=== PATIENT | female | born 1950 | race Caucasian/White ===

== ENCOUNTER 2022-12-17 12:12 | Observation (INO) | payer MEDICARE ==
[2022-12-17] MEDS ORDERED: SODIUM CHLORIDE 0.9% 1,000 ML IV ONE (14:29)
--- NOTE | 2022-12-17 15:01 | ED ---
Nausea/Vomiting/Diarrhea HPI - General Chief complaint: Abdominal Pain Stated complaint: Rerferal- vomiting, migrains Time Seen by Provider: 12/17/22 14:12 Source: patient, RN notes reviewed Mode of arrival: wheelchair Limitations: no limitations - History of Present Illness Initial comments: This is a 72-year-old female who presents to the emergency department for multiple complaints. States over the last 3 weeks, she's been dealing with extreme exhaustion. She's also had intermittent episodes of nausea and vomiting, but denies any abdominal pain. Also states that she's been dealing with headaches on and off over the last week. She took ibuprofen today with no relief in symptoms. Denies any notable history of headaches, and states that she's also been experiencing visual changes. States that she has autoimmune hepatitis, but denies any history of ascites. Currently follows with Dr. Gilman, a liver specialist at [facility]. States that he instructed her to come here to the emergency department for further evaluation. She is due to have an EGD soon for evaluation of her liver. Also states that she has not taken her thyroid medication in 3 months, because she forgot. Denies any fevers, chills, sore throat, cough, dyspnea, chest pain, palpitations, abdominal pain, diarrhea, or back pain. MD complaint: nausea, vomiting - Related Data Home Medications Medication Instructions Recorded Confirmed Levothyroxine Sodium [Synthroid] 112 mcg PO DAILY 12/17/22 12/17/22 Meclizine [Antivert] 25 mg PO Q8H PRN 12/17/22 12/17/22 Olmesartan/Hydrochlorothiazide 1 tab PO DAILY 12/17/22 12/17/22 [Benicar Hct 40-12.5 mg Tablet] Omeprazole 40 mg PO DAILY 12/17/22 12/17/22 amLODIPine [Norvasc] 5 mg PO DAILY 12/17/22 12/17/22 Allergies Allergy/AdvReac Type Severity Reaction Status Date / Time codeine AdvReac Vomiting Verified 12/17/22 19:39 morphine AdvReac Vomiting Verified 12/17/22 19:39 Review of Systems ROS Statement: Those systems with pertinent positive or pertinent negative responses have been documented in the HPI. ROS Other: All systems not noted in ROS Statement are negative. Past Medical History Past Medical History: Hypertension, Liver Disease History of Any Multi-Drug Resistant Organisms: None Reported Past Surgical History: Appendectomy, Cholecystectomy Smoking Status: Never smoker Past Alcohol Use History: None Reported Past Drug Use History: None Reported General Exam Limitations: no limitations General appearance: alert, in no apparent distress Head exam: Present: atraumatic, normocephalic, normal inspection Respiratory exam: Present: normal lung sounds bilaterally. Absent: respiratory distress, wheezes, rales, rhonchi, stridor Cardiovascular Exam: Present: regular rate, normal rhythm, normal heart sounds. Absent: systolic murmur, diastolic murmur, rubs, gallop, clicks GI/Abdominal exam: Present: soft, normal bowel sounds. Absent: distended, tenderness, guarding, rebound, rigid Neurological exam: Present: alert, oriented X3, CN II-XII intact Psychiatric exam: Present: normal affect, normal mood Skin exam: Present: warm, dry, intact, normal color. Absent: rash Course Vital Signs 12/17/22 12/17/22 12:28 14:19 Temperature 97.7 F Pulse Rate 56 L 65 Respiratory 16 18 Rate Blood Pressure 104/68 138/80 O2 Sat by Pulse 98 99 Oximetry Medical Decision Making - Medical Decision Making This is a 72-year-old female who presents to the emergency department for nausea, vomiting, and headaches. Was pt. sent in by a medical professional or institution? @ -No Did you speak to anyone other than the patient for history? @ -No Did you review nursing and triage notes? @ -Yes, and I agree, it is accurate with regards to the patient's symptoms. Were old charts reviewed? @ -No Differential Diagnosis? @ -Differential Nausea and Vomiting: Gastroenteritis, cholecystitis, appendicitis, pancreatitis, migraine, benign positional vertigo, food borne illness, pyelonephritis, irritable bowel syndrome, influenza, Covid, GERD, incarcerated hernia, intestinal obstruction, this is not meant to be an all-inclusive list. -Differential Headache: Migraine, tension, cluster, carbon monoxide, central venous thrombosis, pension karma temporal arteritis, acute closure glaucoma, intercranial hemorrhage, mastoiditis, sinusitis, head injury, this is not meant to be an all-inclusive list. EKG interpreted by me (3pts min.)? @ -EKG interpreted by me demonstrating the following: Sinus bradycardia. Ventricular rate 56 beats per minute, MN interval 190 ms, QRS duration 104 ms, QTc 326 ms. X-rays interpreted by me (1pt min.)? @ -Not obtained CT interpreted by me (1pt min.)? @ -Computed tomography scan of the brain obtained. My interpretation identifies no evidence of an acute intracranial hemorrhage or acute ischemic changes. U/S interpreted by me (1pt. min.)? @ -Not obtained What testing was considered but not performed? (CT, X-rays, U/S, labs)? Why? @ -None What meds were considered but not given? Why? @ -None Did you discuss the management of the patient with other professionals? @ -Yes, Dr. Winter, who accepts the patient for admission. Did you reconcile home meds? @ -No Was smoking cessation discussed for >3mins.? @ -No Was critical care preformed (if so, how long)? @ -No Were there social determinants of health that impacted care today? How? (Homelessness, low income, unemployed, alcoholism, drug addiction, transportation, low edu. Level, literacy, decrease access to med. care, assisted, rehab)? @ -No Was there de-escalation of care discussed even if they declined? (Discuss DNR or withdrawal of care, Hospice)? @ -No What co-morbidities impacted this encounter? (DM, HTN, Smoking, COPD, CAD, Cancer, CVA, Hep., AIDS, mental health diagnosis, sleep apnea, morbid obesity)? @ -Autoimmune hepatitis Was patient admitted / discharged? @ -Admitted. Lab work obtained revealing elevated liver enzymes and a mildly elevated ammonia. However, patient does have a history of autoimmune hepatitis and we do not have any prior values for comparison. The ED law secretary called [facility] and tried to get the results of the patient's most recent blood work for comparison. However, they were only able to access her PT/INR. PT was 13.2 and INR 1.18 on 11/12/22. Additionally, TSH is elevated at 93.5. Free T4 within normal limits. As noted in the HPI, patient has not been taking her levothyroxine for 3 months. Computed tomography scan of the brain obtained revealing no acute process. We did also obtain an ultrasound of the abdomen, however visualization was very limited due to overlying bowels. Patient continues to explain of extreme exhaustion with nausea/vomiting and headaches. In light of her ongoing symptoms, patient admitted to medicine for further management. Blood cultures were obtained and the patient was given IV levothyroxine. GI consulted for evaluation of elevated liver enzymes and elevated ammonia levels. Undiagnosed new problem with uncertain prognosis? @ -None Drug Therapy requiring intensive monitoring for toxicity (Heparin, Nitro, Insulin, Cardizem)? @ -None Were any procedures done? @ -None Diagnosis/symptom? @ -Fatigue, N/V, elevated ammonia Acute, or Chronic, or Acute on Chronic? @ -Acute Uncomplicated (without systemic symptoms) or Complicated (systemic symptoms)? @ -Complicated Side effects of treatment? @ -None Exacerbation, Progression, or Severe Exacerbation] @ -Not applicable Poses a threat to life or bodily function? @ -Yes This case was discussed in detail with the attending ED physician, Dr. Tatum. Presentation, findings, and treatment plan discussed in detail as well. - Lab Data Result diagrams: 12/17/22 14:49 12/17/22 14:49 Lab Results 12/17/22 12/17/22 12/17/22 Range/Units 14:49 14:49 14:49 WBC 6.4 (3.8-10.6) k/uL RBC 4.40 (3.80-5.40) m/uL Hgb 14.3 (11.4-16.0) gm/dL Hct 43.6 (34.0-46.0) % MCV 99.1 (80.0-100.0) fL MCH 32.4 (25.0-35.0) pg MCHC 32.7 (31.0-37.0) g/dL RDW 15.6 H (11.5-15.5) % Plt Count 167 (150-450) k/uL MPV 8.9 Neutrophils % 55 % Lymphocytes % 36 % Monocytes % 6 % Eosinophils % 1 % Basophils % 0 % Neutrophils # 3.5 (1.3-7.7) k/uL Lymphocytes # 2.3 (1.0-4.8) k/uL Monocytes # 0.4 (0-1.0) k/uL Eosinophils # 0.1 (0-0.7) k/uL Basophils # 0.0 (0-0.2) k/uL Macrocytosis Slight PT 13.1 H (9.0-12.0) sec INR 1.3 H (<1.2) APTT 29.8 (22.0-30.0) sec Sodium 136 L (137-145) mmol/L Potassium 3.7 (3.5-5.1) mmol/L Chloride 106 (98-107) mmol/L Carbon Dioxide 21 L (22-30) mmol/L Anion Gap 9 mmol/L BUN 16 (7-17) mg/dL Creatinine 0.84 (0.52-1.04) mg/dL Est GFR (CKD-EPI)AfAm 80 (>60 ml/min/1.73 sqM) Est GFR (CKD-EPI)NonAf 69 (>60 ml/min/1.73 sqM) Glucose 105 H (74-99) mg/dL Calcium 8.8 (8.4-10.2) mg/dL Total Bilirubin 2.1 H (0.2-1.3) mg/dL AST 73 H (14-36) U/L ALT 63 H (4-34) U/L Alkaline Phosphatase 217 H (38-126) U/L Ammonia (<30) umol/L Troponin I (0.000-0.034) ng/mL Total Protein 10.1 H (6.3-8.2) g/dL Albumin 3.4 L (3.5-5.0) g/dL Amylase 72 (30-110) U/L Lipase 136 (23-300) U/L TSH 93.500 H (0.465-4.680) mIU/L Free T4 0.86 (0.78-2.19) ng/dL Urine Color Urine Appearance (Clear) Urine pH (5.0-8.0) Ur Specific [place] (1.001-1.035) Urine Protein (Negative) Urine Glucose (UA) (Negative) Urine Ketones (Negative) Urine Blood (Negative) Urine Nitrite (Negative) Urine Bilirubin (Negative) Urine Urobilinogen (<2.0) mg/dL Ur Leukocyte Esterase (Negative) Heterophile Antibody (Negative) 12/17/22 12/17/22 12/17/22 Range/Units 14:49 14:49 15:17 WBC (3.8-10.6) k/uL RBC (3.80-5.40) m/uL Hgb (11.4-16.0) gm/dL Hct (34.0-46.0) % MCV (80.0-100.0) fL MCH (25.0-35.0) pg MCHC (31.0-37.0) g/dL RDW (11.5-15.5) % Plt Count (150-450) k/uL MPV Neutrophils % % Lymphocytes % % Monocytes % % Eosinophils % % Basophils % % Neutrophils # (1.3-7.7) k/uL Lymphocytes # (1.0-4.8) k/uL Monocytes # (0-1.0) k/uL Eosinophils # (0-0.7) k/uL Basophils # (0-0.2) k/uL Macrocytosis PT (9.0-12.0) sec INR (<1.2) APTT (22.0-30.0) sec Sodium (137-145) mmol/L Potassium (3.5-5.1) mmol/L Chloride (98-107) mmol/L Carbon Dioxide (22-30) mmol/L Anion Gap mmol/L BUN (7-17) mg/dL Creatinine (0.52-1.04) mg/dL Est GFR (CKD-EPI)AfAm (>60 ml/min/1.73 sqM) Est GFR (CKD-EPI)NonAf (>60 ml/min/1.73 sqM) Glucose (74-99) mg/dL Calcium (8.4-10.2) mg/dL Total Bilirubin (0.2-1.3) mg/dL AST (14-36) U/L ALT (4-34) U/L Alkaline Phosphatase (38-126) U/L Ammonia 54 H (<30) umol/L Troponin I <0.012 (0.000-0.034) ng/mL Total Protein (6.3-8.2) g/dL Albumin (3.5-5.0) g/dL Amylase (30-110) U/L Lipase (23-300) U/L TSH (0.465-4.680) mIU/L Free T4 (0.78-2.19) ng/dL Urine Color Urine Appearance (Clear) Urine pH (5.0-8.0) Ur Specific [place] (1.001-1.035) Urine Protein (Negative) Urine Glucose (UA) (Negative) Urine Ketones (Negative) Urine Blood (Negative) Urine Nitrite (Negative) Urine Bilirubin (Negative) Urine Urobilinogen (<2.0) mg/dL Ur Leukocyte Esterase (Negative) Heterophile Antibody Negative (Negative) 12/17/22 Range/Units 15:17 WBC (3.8-10.6) k/uL RBC (3.80-5.40) m/uL Hgb (11.4-16.0) gm/dL Hct (34.0-46.0) % MCV (80.0-100.0) fL MCH (25.0-35.0) pg MCHC (31.0-37.0) g/dL RDW (11.5-15.5) % Plt Count (150-450) k/uL MPV Neutrophils % % Lymphocytes % % Monocytes % % Eosinophils % % Basophils % % Neutrophils # (1.3-7.7) k/uL Lymphocytes # (1.0-4.8) k/uL Monocytes # (0-1.0) k/uL Eosinophils # (0-0.7) k/uL Basophils # (0-0.2) k/uL Macrocytosis PT (9.0-12.0) sec INR (<1.2) APTT (22.0-30.0) sec Sodium (137-145) mmol/L Potassium (3.5-5.1) mmol/L Chloride (98-107) mmol/L Carbon Dioxide (22-30) mmol/L Anion Gap mmol/L BUN (7-17) mg/dL Creatinine (0.52-1.04) mg/dL Est GFR (CKD-EPI)AfAm (>60 ml/min/1.73 sqM) Est GFR (CKD-EPI)NonAf (>60 ml/min/1.73 sqM) Glucose (74-99) mg/dL Calcium (8.4-10.2) mg/dL Total Bilirubin (0.2-1.3) mg/dL AST (14-36) U/L ALT (4-34) U/L Alkaline Phosphatase (38-126) U/L Ammonia (<30) umol/L Troponin I (0.000-0.034) ng/mL Total Protein (6.3-8.2) g/dL Albumin (3.5-5.0) g/dL Amylase (30-110) U/L Lipase (23-300) U/L TSH (0.465-4.680) mIU/L Free T4 (0.78-2.19) ng/dL Urine Color Yellow Urine Appearance Clear (Clear) Urine pH 7.0 (5.0-8.0) Ur Specific [place] 1.014 (1.001-1.035) Urine Protein Negative (Negative) Urine Glucose (UA) Negative (Negative) Urine Ketones Negative (Negative) Urine Blood Negative (Negative) Urine Nitrite Negative (Negative) Urine Bilirubin Negative (Negative) Urine Urobilinogen 8.0 (<2.0) mg/dL Ur Leukocyte Esterase Negative (Negative) Heterophile Antibody (Negative) - Radiology Data Radiology results: report reviewed, image reviewed Disposition Clinical Impression: Nausea and vomiting, Increased ammonia level, Generalized headaches Disposition: ADMITTED IP TO THIS HOSP
[2022-12-17 15:21] LABS: Basophils % (A) 0 %; Eosinophils # (A) 0.1 k/uL (0-0.7); Eosinophils % (A) 1 %; HCT 43.6 % (34.0-46.0); HGB 14.3 gm/dL (11.4-16.0); Lymphocytes # (A) 2.3 k/uL (1.0-4.8); Lymphocytes % (A) 36 %; MCH 32.4 pg (25.0-35.0); MCHC 32.7 g/dL (31.0-37.0); MCV 99.1 fL (80.0-100.0); Macrocytosis Slight; Mean Platelet Volume 8.9; Monocytes # (A) 0.4 k/uL (0-1.0); Monocytes % (A) 6 %; Neutrophils # (A) 3.5 k/uL (1.3-7.7); Neutrophils % (A) 55 %; Platelet Count 167 k/uL (150-450); RDW 15.6 % (11.5-15.5); WBC 6.4 k/uL (3.8-10.6)
[2022-12-17 15:27] LABS: Appearance,Urine Clear (Clear); Bilirubin,Urine Negative (Negative); Blood,Urine Negative (Negative); Color,Urine Yellow; Glucose,Urine (UA) Negative (Negative); Ketones,Urine Negative (Negative); Leukocyte Esterase,Urine Negative (Negative); Nitrite,Urine Negative (Negative); Protein,Urine Negative (Negative); Specific Gravity,Urine 1.014 (1.001-1.035)
[2022-12-17 15:29] LABS: ALT 63 U/L (4-34); AST 73 U/L (14-36); African American GFR (CKD) 80 (>60 ml/min/1.73 sqM); Albumin 3.4 g/dL (3.5-5.0); Alkaline Phosphatase 217 U/L (38-126); Amylase 72 U/L (30-110); Anion Gap 9 mmol/L; Blood Urea Nitrogen 16 mg/dL (7-17); Calcium 8.8 mg/dL (8.4-10.2); Carbon Dioxide 21 mmol/L (22-30); Chloride 106 mmol/L (98-107); Glucose 105 mg/dL (74-99); Lipase 136 U/L (23-300); Non-African American GFR(CKD) 69 (>60 ml/min/1.73 sqM); Potassium 3.7 mmol/L (3.5-5.1); Sodium 136 mmol/L (137-145); Total Bilirubin 2.1 mg/dL (0.2-1.3); Total Protein 10.1 g/dL (6.3-8.2)
[2022-12-17 15:34] LABS: INR 1.3 (<1.2); Partial Thromboplastin Time 29.8 sec (22.0-30.0); Prothrombin Time 13.1 sec (9.0-12.0)
--- NOTE | 2022-12-17 16:21 | US ---
EXAMINATION TYPE: US abdomen limited DATE OF EXAM: 12/17/2022 COMPARISON: NONE CLINICAL INDICATION: Female, 72 years old with history of N/V, bloating, has autoimmune hepatitis; na usea and vomiting, bloating, hepatitis, cholecystectomy TECHNIQUE: Multiple sonographic images of the right upper quadrant are obtained. FINDINGS: EXAM MEASUREMENTS: Liver Length: 16.8 cm Gallbladder Wall: Surgically absent CBD: 0.7 cm Right Kidney: 10.3 x 3.9 x 4.2 cm ENTRY LEVEL MARKETING REPRESENTATIVE NOTES: Technical limitations due to large amount of overlying bowel content Pancreas: Obscured by bowel gas Liver: limited evaluation, heterogeneous Gallbladder: Surgically absent Evidence for sonographic Milligan's sign: no CBD: wnl Right Kidney: no evidence of hydronephrosis, lower pole obscured IMPRESSION: No evidence for acute process.
--- NOTE | 2022-12-17 16:34 | CT ---
EXAMINATION TYPE: CT brain wo con CT DLP: 1064.4 mGycm, Automated exposure control for dose reduction was used. DATE OF EXAM: 12/17/2022 4:26 PM COMPARISON: None. CLINICAL INDICATION:Female, 72 years old with history of Headaches, visual changes, headaches TECHNIQUE: Brain: Axial CT images of the brain were obtained with coronal and sagittal reformats created and rev iewed. Contrast used: None. Oral contrast used: None. FINDINGS: Brain: Extra-axial spaces: No abnormal extra-axial fluid collections. Ventricular system: Dilatation in proportion to cerebral atrophy. Cerebral parenchyma: Cerebral atrophy. No acute intraparenchymal hemorrhage or mass effect. The barger -white junction is well differentiated. Scattered hypoattenuating areas are seen within the white mat ter. Cerebellum: Unremarkable. Mass effect: No evidence of midline shift. Intracranial vasculature: Atherosclerotic calcifications of the intracranial vessels. Soft tissues: Normal. Calvarium/osseous structures: No depressed skull fracture. Paranasal sinuses and mastoid air cells: Mild scattered paranasal sinus disease. Visualized orbits: Orbital contents are intact. IMPRESSION: 1. No acute intracranial process. 2. Nonspecific white matter changes, likely secondary to chronic small vessel ischemic disease.
[2022-12-17 16:35] LABS: T4, Free (Free Thyroxine) 0.86 ng/dL (0.78-2.19)
[2022-12-17] MEDS ORDERED: LEVOTHYROXINE IVP 100 MCG/5 ML VIAL IV ONE (18:15)
[2022-12-17] MEDS ORDERED: ACETAMINOPHEN TAB 325 MG TAB PO PRN (18:18)
[2022-12-17] MEDS ORDERED: NALOXONE 0.4 MG/ML 1 ML VIAL IV PRN (18:18)
[2022-12-17] MEDS ORDERED: traMADol 50 MG TAB PO PRN (18:18)
[2022-12-17] MEDS ORDERED: ONDANSETRON 4 MG/2 ML VIAL IVP PRN (18:18)
[2022-12-17] MEDS ORDERED: KETOROLAC 15 MG/ML 1 ML VIAL IVP STA (18:21)
[2022-12-18] MEDS: LEVOTHYROXINE 112 MCG TAB PO SCH (06:06)
[2022-12-18] MEDS ORDERED: LACTULOSE 20 GM/30 ML CUP PO ONE (08:40)
--- NOTE | 2022-12-18 08:46 | CT ---
EXAMINATION TYPE: CT chest wo con CT DLP: 529 mGycm, Automated exposure control for dose reduction was used. DATE OF EXAM: 12/18/2022 7:46 AM COMPARISON: None CLINICAL INDICATION:Female, 72 years old with history of dyspnea; TECHNIQUE: Multiple axial images were obtained through the chest. Sagittal and coronal reformats were created for review. Contrast used: mL of (None if empty) Oral contrast used: (None if empty) FINDINGS: LUNGS/ PLEURA: Mild centrilobular emphysema changes. No evidence focal consolidation, pneumothorax or pleural effusion. No suspicious pulmonary nodules. Some peripheral densities along the lungs most pr onounced on the right likely representing atelectasis. AIRWAY: Patent and unremarkable. HEART: Enlarged within normal limits for size. There is mild coronary artery cusp patient's. Aortic v alve leaflet mitral scattered cysts are also present. MEDIASTINUM: No gross evidence of adenopathy. VASCULATURE: Atherosclerotic calcifications are present throughout the aorta and its branches. MUSCULOSKELETAL: Mild disc degeneration changes are present throughout the thoracolumbar spine. Scatt ered vertebral body hemangiomas. Scoliosis changes to the spine. SOFT TISSUES/LYMPH NODES: Unremarkable. LOWER NECK: No significant findings. UPPER ABDOMEN: Nodular contour to liver. With a shrunken appearance. There is recanalization of periu mbilical vein with varices within the upper abdomen and anterior abdominal wall. IMPRESSION: 1. Mild emphysema. 2. Hepatic cirrhosis with evidence of portal hypertension. 3. Moderate to large hiatal hernia.
[2022-12-18] MEDS: PANTOPRAZOLE 40 MG TABLET PO SCH (08:56)
[2022-12-18] MEDS: amLODIPine 5 MG TAB PO SCH (08:57)
[2022-12-18] MEDS: hydroCHLOROthiazide 12.5 MG CAP PO SCH (08:57)
[2022-12-18] MEDS ORDERED: LACTULOSE 20 GM/30 ML CUP PO SCH ×2 (09:00)
[2022-12-18] MEDS: LOSARTAN 50 MG TAB PO SCH (10:11)
[2022-12-18 12:10] VITALS: BMI 30.6
--- NOTE | 2022-12-18 12:21 | P.CONS ---
History of Present Illness - Reason for Consult Consult date: 12/18/22 Elevated LFTs and ammonia, history of autoimmune hepatitis Requesting physician: Margaret Vega - Chief Complaint Nausea and vomiting, weakness - History of Present Illness This is a 72-year-old female with a past medical history of cirrhosis of the liver from autoimmune hepatitis diagnosed about 10 years ago who follows with Dr. Torres, hypothyroidism and hypertension who presented to the emergency department with complaints of nausea and vomiting, headache, fatigue over the last 3 weeks duration. Patient states she's been having severe headaches with associated nausea and vomiting. She states that she's been feeling weak and run down. It wasn't until this past week that her daughter had mentioned her Synthroid and patient states that she felt a new prescription and put the bottle up high and had forgotten to take her Synthroid over the last 6 weeks duration. The patient just started taking it about a week ago and states that she's feeling somewhat better. Patient was on Imuran up until April 2022. Currently not on any medications for her hepatitis. Today she has no nausea or vomiting, denies any abdominal pain, and and was able to eat this morning. On her admitting labs she had some elevated LFTs as well as an elevated ammonia of 54 with a repeat today at 143. Patient denies any history of hepatic encephalopathy. She has not been on lactulose at home. She follows with Dr. Torres inventory control manager Roddy states that she is supposed to see him for EGD otherwise is her next scheduled appointment is in January. WBC 6.4 hemoglobin 14 hematocrit 43 platelet count 167,000 INR 1.3 sodium 136 potassium 3.7 BUN 16 creatinine 0.8 total bilirubin 2.1 AST 73 ALT 63 alkaline phosphatase 217 ammonia 143 head or a viral antibody negative. Review of Systems REVIEW OF SYSTEMS: CARDIOPULMONARY: No chest pain or shortness of breath. Gastrointestinal: No abdominal pain. Nausea and vomiting, now improved. No hematemesis, coffee-ground emesis. No rectal bleeding, or melena. GENITOURINARY: No dysuria or hematuria. MUSCULOSKELETAL: Reports normal range of motion. SKIN: No rashes. No jaundice. ENDOCRINE: No chills, fevers. No excessive weight gain or loss. No polydipsia or polyuria. PSYCHIATRIC: Unremarkable. NEUROLOGY: No change in mental status. Denies dizziness. Complaints of headache. ENT: Vision unremarkable. CONSTITUTIONAL: No recent weight loss. No fever, chills, night sweats. Past Medical History Past Medical History: Hypertension, Liver Disease Additional Past Medical History / Comment(s): autoimmune hepatitis History of Any Multi-Drug Resistant Organisms: None Reported Past Surgical History: Appendectomy, Cholecystectomy Past Anesthesia/Blood Transfusion Reactions: No Reported Reaction Smoking Status: Never smoker Past Alcohol Use History: None Reported Past Drug Use History: None Reported Medications and Allergies Home Medications Medication Instructions Recorded Confirmed Type Levothyroxine Sodium [Synthroid] 112 mcg PO DAILY 12/17/22 12/17/22 History Meclizine [Antivert] 25 mg PO Q8H PRN 12/17/22 12/17/22 History Olmesartan/Hydrochlorothiazide 1 tab PO DAILY 12/17/22 12/17/22 History [Benicar Hct 40-12.5 mg Tablet] Omeprazole 40 mg PO DAILY 12/17/22 12/17/22 History amLODIPine [Norvasc] 5 mg PO DAILY 12/17/22 12/17/22 History Allergies Allergy/AdvReac Type Severity Reaction Status Date / Time codeine AdvReac Vomiting Verified 12/17/22 19:39 morphine AdvReac Vomiting Verified 12/17/22 19:39 Physical Exam Vitals: Vital Signs Temp Pulse Pulse Resp BP BP Pulse Ox 12/18/22 07:00 98.3 F 57 L 16 95/64 97 12/18/22 01:28 97.9 F 58 L 15 98/61 96 12/18/22 01:08 61 12/17/22 20:35 97.6 F 61 16 111/75 96 12/17/22 14:19 65 18 138/80 99 12/17/22 12:28 97.7 F 56 L 16 104/68 98 Intake and Output 12/17/22 12/18/22 12/18/22 22:59 06:59 14:59 Other: # Voids 1 1 Weight 73.482 kg General appearance: The patient is alert, oriented, appears in no acute distress. HET: Head is normocephalic and atraumatic. Conjunctiva pink. Sclera anicteric. Neck: Supple without lymphadenopathy. Trachea midline. Heart: S1 S2. Regular rate and rhythm. Lungs: Clear to auscultation. Abdomen: Soft, nontender, nondistended with bowel sounds. No guarding or rigidity. Skin: No rashes. No jaundice. Extremities: Normal skin color and turgor. No pedal edema. Neurological: No focal deficits. Alert and oriented x3. Results CBC & Chem 7: 12/17/22 14:49 12/17/22 14:49 Labs: Abnormal Lab Results - Last 24 Hours (Table) 12/17/22 12/17/22 12/17/22 Range/Units 14:49 14:49 14:49 RDW 15.6 H (11.5-15.5) % PT 13.1 H (9.0-12.0) sec INR 1.3 H (<1.2) Sodium 136 L (137-145) mmol/L Carbon Dioxide 21 L (22-30) mmol/L Glucose 105 H (74-99) mg/dL Total Bilirubin 2.1 H (0.2-1.3) mg/dL AST 73 H (14-36) U/L ALT 63 H (4-34) U/L Alkaline Phosphatase 217 H (38-126) U/L Ammonia (<30) umol/L Total Protein 10.1 H (6.3-8.2) g/dL Albumin 3.4 L (3.5-5.0) g/dL TSH 93.500 H (0.465-4.680) mIU/L 12/17/22 12/18/22 Range/Units 14:49 02:41 RDW (11.5-15.5) % PT (9.0-12.0) sec INR (<1.2) Sodium (137-145) mmol/L Carbon Dioxide (22-30) mmol/L Glucose (74-99) mg/dL Total Bilirubin (0.2-1.3) mg/dL AST (14-36) U/L ALT (4-34) U/L Alkaline Phosphatase (38-126) U/L Ammonia 54 H 143 H (<30) umol/L Total Protein (6.3-8.2) g/dL Albumin (3.5-5.0) g/dL TSH (0.465-4.680) mIU/L Assessment and Plan (1) Hyperammonemia Narrative/Plan: A 72-year-old female with a history of autoimmune hepatitis diagnosed approximately 10 years ago treated with Dr. Mills. Patient came in with nausea vomiting headaches and was noted to have elevated LFTs as well as elevated ammonia level. Patient denies previous history of hepatic encephalopathy, previous history of elevated ammonia and denies being on lactulose. Patient is alert and oriented 4. States she has been feeling of fatigue but has also been having chronic headaches as well as nausea and vomiting. Patient had admitted that she has not taken her thyroid medication in at least a month's time because she forgot which may be contributing to her symptoms of nausea and vomiting and headaches. Patient follows consistently with Dr. Faby Pereyra states her next appointment is in January. Will start patient on lactulose 30 g 3 times a day. And recommend follow-up with her inventory control manager. Current Visit: Yes Status: Acute Code(s): E72.20 - DISORDER OF UREA CYCLE METABOLISM, UNSPECIFIED SNOMED Code(s): 1131547 (2) Nausea and vomiting Current Visit: Yes Status: Acute Code(s): R11.2 - NAUSEA WITH VOMITING, UNSPECIFIED SNOMED Code(s): 09884375 (3) Autoimmune hepatitis Current Visit: Yes Status: Acute Code(s): K75.4 - AUTOIMMUNE HEPATITIS SNOMED Code(s): 267792865 (4) Hypothyroid Current Visit: Yes Status: Acute Code(s): E03.9 - HYPOTHYROIDISM, UNSPECIFIED SNOMED Code(s): 64345892 (5) Generalized headaches Current Visit: Yes Status: Acute Code(s): R51.9 - HEADACHE, UNSPECIFIED SNOMED Code(s): 695082222 Plan: 1. Continue symptomatic and supportive care 2. Antiemetics as needed 3. Diet as tolerated 4. Daily CMP, ammonia level 5. 1 dose of lactulose now and then 30 g 3 times a day 6. Patient to follow-up with her inventory control manager in the next 1 week and will need close follow-up and monitoring for LFTs Thank you for this consultation, we will continue to follow. Dr. Manuela Lewis I agree with the dictator's note, documented as a scribe by Rosy Morales.
[2022-12-18] MEDS: IBUPROFEN 400 MG TAB PO PRN (20:44)
--- NOTE | 2022-12-19 02:12 | PN ---
PROGRESS NOTE SUBJECTIVE: This is a 72-year-old white female, fatigue, nausea, heartburn, elevated ammonia level secondary to possibly hypertension, shortness of breath, broad-spectrum. Breathing treatments have been given, lactulose has been given. Prognosis guarded. OBJECTIVE: CARDIOVASCULAR: S1, S2. HEMATOLOGY: Negative for Homans. Total bilirubin was 2.1. Her ammonia level is 143. TSH is 93. Thyroid has been started. Lactulose will be given. Updraft treatments will be given. Prognosis guarded. MMODL / IJN: [id number] /
[2022-12-19] MEDS: LEVOTHYROXINE 112 MCG TAB PO SCH (06:15)
[2022-12-19] MEDS: IBUPROFEN 400 MG TAB PO PRN (06:21)
[2022-12-19] MEDS: BUDESONIDE 0.5 MG/2 ML NEBU INHALATION SCH ×2 (08:40→21:07)
[2022-12-19] MEDS: IPRATROPIUM-ALBUTEROL 3 ML NEB INHALATION SCH ×4 (08:40→21:07)
[2022-12-19 08:47] LABS: Basophils # (A) 0.03 X 10*3/uL (0.00-0.10); Basophils % (A) 0.8 %; Eosinophils # (A) 0.16 X 10*3/uL (0.04-0.35); HCT 33.8 % (37.2-46.3); Immature Grans, Automated 0 %; Lymphocytes # (A) 1.62 X 10*3/uL (0.90-5.00); Lymphocytes % (A) 40.6 %; MCH 32.5 pg (27.0-32.0); MCHC 32.5 d/dL (32.0-37.0); Mean Platelet Volume 11.9 FL (9.5-12.2); NRBC Per 100 WBC 0 X 10*3/uL (0.00-0.01); Neutrophils # (A) 1.78 X 10*3/uL (1.80-7.70); Neutrophils % (A) 44.6 %; Platelet Count 105 X 10*3/uL (140-440); RBC 3.38 X 10*6/uL (4.10-5.20); RDW 16.2 % (11.5-14.5); WBC 3.99 X 10*3/uL (4.50-10.00)
[2022-12-19] MEDS: LACTULOSE 20 GM/30 ML CUP PO SCH ×3 (09:19→20:36)
[2022-12-19] MEDS: hydroCHLOROthiazide 12.5 MG CAP PO SCH (09:19)
[2022-12-19] MEDS: amLODIPine 5 MG TAB PO SCH (09:19)
[2022-12-19] MEDS: LOSARTAN 50 MG TAB PO SCH (09:19)
[2022-12-19] MEDS: PANTOPRAZOLE 40 MG TABLET PO SCH (09:20)
[2022-12-19 09:54] LABS: ALT 48 U/L (8-44); AST 46 U/L (13-35); Albumin 2.2 d/dL (3.8-4.9); Albumin/Globulin Ratio 0.44 Ratio (1.60-3.17); Alkaline Phosphatase 138 U/L (41-126); Calcium 8.2 mg/dL (8.7-10.3); Chloride 108 mmol/L (96-109); Glucose 67 mg/dL (70-110); Potassium 3.4 mmol/L (3.5-5.5); Sodium 138 mmol/L (135-145); Total Bilirubin 1.2 mg/dL (0.3-1.2); Total Protein 7.2 d/dL (6.2-8.2)
--- NOTE | 2022-12-19 12:14 | P.PN ---
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 Torres, hypothyroidism and hypertension who presented to the emergency department with complaints of nausea and vomiting, headache, fatigue over the last 3 weeks duration. Patient states she's been having severe headaches with associated nausea and vomiting. She states that she's been feeling weak and run down. It wasn't until this past week that her daughter had mentioned her Synthroid and patient states that she felt a new prescription and put the bottle up high and had forgotten to take her Synthroid over the last 6 weeks duration. The patient just started taking it about a week ago and states that she's feeling somewhat better. Patient was on Imuran up until April 2022. Currently not on any medications for her hepatitis. Today she has no nausea or vomiting, denies any abdominal pain, and and was able to eat this morning. On her admitting labs she had some elevated LFTs as well as an elevated ammonia of 54 with a repeat today at 143. Patient denies any history of hepatic encephalopathy. She has not been on lactulose at home. She follows with Dr. Torres cleaner housekeeping [place] states that she is supposed to see him for EGD otherwise is her next scheduled appointment is in January. WBC 6.4 hemoglobin 14 hematocrit 43 platelet count 167,000 INR 1.3 sodium 136 potassium 3.7 BUN 16 creatinine 0.8 total bilirubin 2.1 AST 73 ALT 63 alkaline phosphatase 217 ammonia 143 head or a viral antibody negative. 12/19/2022 Patient seen and examined today as follow-up. She had multiple bowel movements yesterday. Reported nonbloody. Had some abdominal cramping at that time but none further. She is alert and oriented. States she is feeling better today. She is eating well. WBC 3.9 hemoglobin 11 platelet count 105,000 sodium 138 potassium 3.4 BUN 12 creatinine 0.8 total bilirubin 1.2 AST 46 ALT 48 alkaline phosphatase 138 ammonia 81 Objective - Vital Signs Vital signs: Vital Signs Temp 98.2 F 12/19/22 02:55 Pulse 60 12/19/22 02:55 Resp 16 12/19/22 02:55 BP 109/62 12/19/22 02:55 Pulse Ox 94 L 12/19/22 02:55 FiO2 Intake & Output 12/18/22 12/18/22 12/19/22 06:59 18:59 06:59 Weight 73.482 kg Other: Voiding Method Toilet # Voids 1 1 # Bowel Movements 5 - Exam General appearance: The patient is alert, oriented, appears in no acute distress. HET: Head is normocephalic and atraumatic. Conjunctiva pink. Sclera anicteric. Neck: Supple without lymphadenopathy. Abdomen: Soft, nontender, nondistended with bowel sounds. No guarding or rigidity. Extremities: Normal skin color and turgor. No pedal edema Skin: No rashes, no jaundice Neurological: No focal deficits. Alert and oriented. - Labs CBC & Chem 7: 12/19/22 05:39 12/19/22 05:39 Labs: Abnormal Lab Results - Last 24 Hours (Table) 12/19/22 12/19/22 Range/Units 01:05 05:39 Ammonia 71 H 81 H (<30) umol/L Microbiology - Last 24 Hours (Table) 12/17/22 18:15 Blood Culture - Preliminary Blood 12/17/22 18:30 Blood Culture Gram Stain - Preliminary Blood Assessment and Plan (1) Hyperammonemia Narrative/Plan: A 72-year-old female with a history of autoimmune hepatitis diagnosed approximately 10 years ago treated with Dr. Mills. Patient came in with nausea vomiting headaches and was noted to have elevated LFTs as well as elevated ammonia level. Patient denies previous history of hepatic encephalopathy, previous history of elevated ammonia and denies being on lactulose. Patient is alert and oriented 4. States she has been feeling of fatigue but has also been having chronic headaches as well as nausea and vomiting. Patient had admitted that she has not taken her thyroid medication in at least a month's time because she forgot which may be contributing to her symptoms of nausea and vomiting and headaches. Patient follows consistently with Dr. Faby Pereyra states her next appointment is in January. Will start patient on lactulose 30 g 3 times a day. And recommend follow-up with her cleaner housekeeping. Current Visit: Yes Status: Acute Code(s): E72.20 - DISORDER OF UREA CYCLE METABOLISM, UNSPECIFIED SNOMED Code(s): 5902027 (2) Cirrhosis Current Visit: Yes Status: Acute Code(s): K74.60 - UNSPECIFIED CIRRHOSIS OF LIVER SNOMED Code(s): 33805726 (3) Nausea and vomiting Current Visit: Yes Status: Acute Code(s): R11.2 - NAUSEA WITH VOMITING, UNSPECIFIED SNOMED Code(s): 76778751 (4) Autoimmune hepatitis Current Visit: Yes Status: Acute Code(s): K75.4 - AUTOIMMUNE HEPATITIS SNOMED Code(s): 772473678 (5) Hypothyroid Current Visit: Yes Status: Acute Code(s): E03.9 - HYPOTHYROIDISM, UNSPECIFIED SNOMED Code(s): 50738807 (6) Generalized headaches Current Visit: Yes Status: Acute Code(s): R51.9 - HEADACHE, UNSPECIFIED SNOMED Code(s): 969675157 Plan: 1. Continue symptomatic and supportive care 2. Antiemetics as needed 3. Diet as tolerated 4. Continue lactulose 30 g 3 times a day, may titrate dosing based on having 3- 4 bowel movements. Patient has to have at least 1 dose per day. This was discussed with her. 5. Patient to follow-up with her cleaner housekeeping in the next 1 week and will need close follow-up and monitoring for LFTs Thank you for this consultation we will sign off at this time. Patient is cleared from gastroenterology for discharge once otherwise medically stable. Dr. Manuela Lewis I agree with the dictator's note, documented as a scribe by Rosy Morales.
[2022-12-19] MEDS ORDERED: CLINDAMYCIN 600 MG in DEXTROSE 5% IN WATER 50 ML IVPB SCH ×2 (17:45)
--- NOTE | 2022-12-19 19:04 | P.CONS ---
History of Present Illness - Reason for Consult Consult date: 12/19/22 - History of Present Illness Patient is a 72-year-old female with a past medical history of treatment for autoimmune hepatitis and secondary cirrhosis of the liver also have a history of hypothyroidism and hypertension presenting to the ER for evaluation of nausea and vomiting headache fatigue symptom has been going on for about 3 weeks before presentation to the hospital, symptoms also of severe headache with associated nausea and vomiting patient denies any fever before presentation to the hospital and no fever has been recorded over the last 3 days patient was not tachycardic or hypoxic during this admission patient did have a normal white count with no left shift kidney function was normal she did have elevated liver enzymes urine was negative patient did have a abdominal ultrasound no evidence of acute process CT of the brain negative for any bleed CT of the chest reported emphysema hepatic cirrhosis with evidence of portal hypertension moderate large hiatal hernia patient did have a blood culture drawn which came back positive with the bacillus species that has prompted this infectious disease consultation Past Medical History Past Medical History: Hypertension, Liver Disease Additional Past Medical History / Comment(s): autoimmune hepatitis History of Any Multi-Drug Resistant Organisms: None Reported Past Surgical History: Appendectomy, Cholecystectomy Past Anesthesia/Blood Transfusion Reactions: No Reported Reaction Smoking Status: Never smoker Past Alcohol Use History: None Reported Past Drug Use History: None Reported Medications and Allergies Home Medications Medication Instructions Recorded Confirmed Type Levothyroxine Sodium [Synthroid] 112 mcg PO DAILY 12/17/22 12/17/22 History Meclizine [Antivert] 25 mg PO Q8H PRN 12/17/22 12/17/22 History Olmesartan/Hydrochlorothiazide 1 tab PO DAILY 12/17/22 12/17/22 History [Benicar Hct 40-12.5 mg Tablet] Omeprazole 40 mg PO DAILY 12/17/22 12/17/22 History amLODIPine [Norvasc] 5 mg PO DAILY 12/17/22 12/17/22 History Allergies Allergy/AdvReac Type Severity Reaction Status Date / Time codeine AdvReac Vomiting Verified 12/17/22 19:39 morphine AdvReac Vomiting Verified 12/17/22 19:39 Physical Exam Vitals: Vital Signs Temp Pulse Pulse Resp BP Pulse Ox 12/19/22 08:54 64 12/19/22 08:41 60 12/19/22 07:30 97.9 F 65 17 107/71 98 12/19/22 02:55 98.2 F 60 16 109/62 94 L 12/18/22 19:31 98.2 F 65 16 110/74 97 12/18/22 15:00 97.8 F 65 16 152/78 98 Intake and Output 12/18/22 12/19/22 12/19/22 22:59 06:59 14:59 Intake Total 240 Balance 240 Intake: Oral 240 Other: Voiding Method Toilet Toilet # Voids 1 1 1 Results CBC & Chem 7: 12/19/22 05:39 12/19/22 05:39 Labs: Abnormal Lab Results - Last 24 Hours (Table) 12/19/22 12/19/22 12/19/22 Range/Units 01:05 05:39 05:39 WBC 3.99 L (4.50-10.00) X 10*3/uL RBC 3.38 L (4.10-5.20) X 10*6/uL Hgb 11.0 L (12.0-15.0) d/dL Hct 33.8 L (37.2-46.3) % MCV 100.0 H (80.0-97.0) FL MCH 32.5 H (27.0-32.0) pg RDW 16.2 H (11.5-14.5) % Plt Count 105 L (140-440) X 10*3/uL Neutrophils # 1.78 L (1.80-7.70) X 10*3/uL Potassium 3.4 L (3.5-5.5) mmol/L Glucose 67 L (70-110) mg/dL Calcium 8.2 L (8.7-10.3) mg/dL AST 46 H (13-35) U/L ALT 48 H (8-44) U/L Alkaline Phosphatase 138 H (41-126) U/L Ammonia 71 H (<30) umol/L Albumin 2.2 L (3.8-4.9) d/dL Globulin 5.0 H (1.6-3.3) d/dL Albumin/Globulin Ratio 0.44 L (1.60-3.17) Ratio 12/19/22 Range/Units 05:39 WBC (4.50-10.00) X 10*3/uL RBC (4.10-5.20) X 10*6/uL Hgb (12.0-15.0) d/dL Hct (37.2-46.3) % MCV (80.0-97.0) FL MCH (27.0-32.0) pg RDW (11.5-14.5) % Plt Count (140-440) X 10*3/uL Neutrophils # (1.80-7.70) X 10*3/uL Potassium (3.5-5.5) mmol/L Glucose (70-110) mg/dL Calcium (8.7-10.3) mg/dL AST (13-35) U/L ALT (8-44) U/L Alkaline Phosphatase (41-126) U/L Ammonia 81 H (<30) umol/L Albumin (3.8-4.9) d/dL Globulin (1.6-3.3) d/dL Albumin/Globulin Ratio (1.60-3.17) Ratio Microbiology - Last 24 Hours (Table) 12/17/22 18:30 Blood Culture Gram Stain - Preliminary Blood Blood Culture - Preliminary Bacillus species Not Anthracis 12/17/22 18:15 Blood Culture - Preliminary Blood Assessment and Plan Plan: 1patient with a positive blood culture with bacillus species which is more likely skin contamination as the patient has no clinical disease to go along with it, patient did not have any fever during this admission white count has been normal no evidence of any cellulitis or joint swelling 2-blood cultures repeated document clearance check inflammatory markers 3-no need for systemic antibiotic therapy We will follow on clinical condition and cultures to further adjust medication if needed Thank you for this consultation we will follow the patient along with you Time with Patient: Greater than 30
[2022-12-20] MEDS: IBUPROFEN 400 MG TAB PO PRN (06:16)
[2022-12-20] MEDS: LEVOTHYROXINE 112 MCG TAB PO SCH (06:16)
[2022-12-20] MEDS: IPRATROPIUM-ALBUTEROL 3 ML NEB INHALATION SCH ×4 (08:13→19:43)
[2022-12-20] MEDS: BUDESONIDE 0.5 MG/2 ML NEBU INHALATION SCH ×2 (08:13→19:43)
[2022-12-20] MEDS: amLODIPine 5 MG TAB PO SCH (08:36)
[2022-12-20] MEDS: LACTULOSE 20 GM/30 ML CUP PO SCH ×3 (08:36→20:13)
[2022-12-20] MEDS: LOSARTAN 50 MG TAB PO SCH (08:37)
[2022-12-20] MEDS: PANTOPRAZOLE 40 MG TABLET PO SCH (08:37)
[2022-12-20] MEDS: hydroCHLOROthiazide 12.5 MG CAP PO SCH (08:37)
[2022-12-20 09:09] LABS: Basophils # (A) 0.03 X 10*3/uL (0.00-0.10); Basophils % (A) 0.7 %; Eosinophils # (A) 0.14 X 10*3/uL (0.04-0.35); Eosinophils % (A) 3.4 %; HCT 33.3 % (37.2-46.3); HGB 10.8 d/dL (12.0-15.0); Lymphocytes # (A) 1.37 X 10*3/uL (0.90-5.00); Lymphocytes % (A) 33.3 %; MCH 31.8 pg (27.0-32.0); MCHC 32.4 d/dL (32.0-37.0); MCV 97.9 FL (80.0-97.0); Mean Platelet Volume 12.2 FL (9.5-12.2); Monocytes # (A) 0.45 X 10*3/uL (0.20-1.00); Monocytes % (A) 10.9 %; NRBC Per 100 WBC 0 X 10*3/uL (0.00-0.01); Neutrophils # (A) 2.11 X 10*3/uL (1.80-7.70); Neutrophils % (A) 51.5 %; Platelet Count 98 X 10*3/uL (140-440); RDW 16.1 % (11.5-14.5); WBC 4.11 X 10*3/uL (4.50-10.00)
[2022-12-20 10:19] LABS: ALT 52 U/L (8-44); AST 47 U/L (13-35); Albumin 2.3 d/dL (3.8-4.9); Albumin/Globulin Ratio 0.44 Ratio (1.60-3.17); Alkaline Phosphatase 146 U/L (41-126); BUN/Creat Ratio 11.71 Ratio (12.00-20.00); Blood Urea Nitrogen 8.2 mg/dL (9.0-27.0); Calcium 8.1 mg/dL (8.7-10.3); Chloride 106 mmol/L (96-109); Globulin 5.2 d/dL (1.6-3.3); Glucose 79 mg/dL (70-110); Potassium 3.1 mmol/L (3.5-5.5); Sodium 137 mmol/L (135-145); Total Bilirubin 0.9 mg/dL (0.3-1.2); Total Protein 7.5 d/dL (6.2-8.2)
[2022-12-20] MEDS ORDERED: Potassium Replacement Protocol 1 EACH MISC MISCELLANE PRN (10:47)
--- NOTE | 2022-12-20 11:39 | PN ---
PROGRESS NOTE SUBJECTIVE: This is a 72-year-old white female doing better with DuoNeb and Pulmicort breathing treatments for her COPD. GI doctor had seen her before. Her ammonia levels have been improved. White count is 4.11, which is up from 3.99, hemoglobin is 10.8, platelet count is 98, down from 105. She has pancytopenia. little bit low 3.1, potassium 3.7. Ammonia level is being drawn this morning, it is pending. Liver enzymes slightly elevated, she has autoimmune hepatitis, CRP has been high 2.10. Procalcitonin high at 0.11. Urine is negative, she may have tracheobronchitis/COPD exacerbation going on here as far as the infection goes. Will continue on broad-spectrum antibiotics. Ordered some potassium for home, may be take down off certain medicines to control her blood pressure better. Continue with the lactulose. Ordered Xifaxan for liver difficulty. Prognosis is guarded. Autoimmune cirrhosis, possible tracheobronchitis versus COPD exacerbation. MMODL / IJN: [id number] /
[2022-12-20] MEDS: RIFAXIMIN 550 MG TABLET PO SCH ×2 (12:18→20:13)
[2022-12-20] MEDS: CLINDAMYCIN 300 MG in DEXTROSE 5% IN WATER 50 ML IVPB SCH ×4 (12:18→20:12)
[2022-12-20] MEDS: POTASSIUM CHLORIDE ER 20 MEQ TAB.ER PO SCH (12:19)
[2022-12-20] MEDS ORDERED: POTASSIUM CHLORIDE ER 20 MEQ TAB.ER PO STA ×2 (14:06→15:51)
--- NOTE | 2022-12-20 14:42 | P.PN ---
Subjective Progress Note Date: 12/20/22 Principal diagnosis: Positive blood cultures Patient is a 72-year-old female with a past medical history of treatment for autoimmune hepatitis and secondary cirrhosis of the liver also have a history of hypothyroidism and hypertension presenting to the ER for evaluation of nausea and vomiting headache fatigue, patient did have elevated ammonia level and also blood cultures given positive for gram-positive bacilli patient did not have any fever or elevated white count. On today's evaluation that is 12/20/2022 patient denies having any fever or any chills, patient denies any further nausea or vomiting no abdominal pain she did have some diarrhea from lactulose no chest pain shortness of breath or cough currently 97% on room air Objective - Vital Signs Vital signs: Vital Signs Temp 97.8 F 12/20/22 07:00 Pulse 73 12/20/22 08:26 Resp 16 12/20/22 07:00 BP 127/80 12/20/22 07:00 Pulse Ox 97 12/20/22 07:00 FiO2 Intake & Output 12/19/22 12/20/22 12/20/22 18:59 06:59 18:59 Intake Total 480 Balance 480 Intake: Oral 480 Other: Voiding Method Toilet # Voids 1 2 - Exam Elderly female lying in bed in no distress Respiratory system unlabored breathing clear to auscultation anteriorly Abdominal soft no tenderness Exam completed with the help of DRAWING BOX TENDER - Labs CBC & Chem 7: 12/20/22 05:49 12/20/22 05:49 Labs: Abnormal Lab Results - Last 24 Hours (Table) 12/20/22 12/20/22 Range/Units 05:49 05:49 WBC 4.11 L (4.50-10.00) X 10*3/uL RBC 3.40 L (4.10-5.20) X 10*6/uL Hgb 10.8 L (12.0-15.0) d/dL Hct 33.3 L (37.2-46.3) % MCV 97.9 H (80.0-97.0) FL RDW 16.1 H (11.5-14.5) % Plt Count 98 L (140-440) X 10*3/uL Potassium 3.1 L (3.5-5.5) mmol/L Carbon Dioxide 21.0 L (21.6-31.8) mmol/L BUN 8.2 L (9.0-27.0) mg/dL BUN/Creatinine Ratio 11.71 L (12.00-20.00) Ratio Calcium 8.1 L (8.7-10.3) mg/dL AST 47 H (13-35) U/L ALT 52 H (8-44) U/L Alkaline Phosphatase 146 H (41-126) U/L C-Reactive Protein 2.10 H (0.00-0.80) mg/dL Albumin 2.3 L (3.8-4.9) d/dL Globulin 5.2 H (1.6-3.3) d/dL Albumin/Globulin Ratio 0.44 L (1.60-3.17) Ratio Microbiology - Last 24 Hours (Table) 12/17/22 18:15 Blood Culture - Preliminary Blood 12/17/22 18:30 Blood Culture Gram Stain - Preliminary Blood Blood Culture - Preliminary Bacillus species Not Anthracis Assessment and Plan (1) Positive blood culture Current Visit: Yes Status: Acute Code(s): R78.81 - BACTEREMIA SNOMED Code(s): 152826398 Plan: 1patient with a positive blood culture with bacillus species which is more likely skin contamination as the patient has no clinical disease to go along with it, patient did not have any fever during this admission white count has been normal no evidence of any cellulitis or joint swelling 2-blood cultures has been repeated to document clearance , inflammatory markers pending 3-no need for systemic antibiotic therapy Time with Patient: Less than 30
--- NOTE | 2022-12-20 16:37 | P.CONS ---
History of Present Illness - Reason for Consult Consult date: 12/20/22 Pancytopenia - Chief Complaint Headache, confusion - History of Present Illness Ms. Mcqueen is a 72-year-old woman with a past medical history significant for hypothyroidism and autoimmune hepatitis complicated by cirrhosis (not currently on treatment) who we were consulted with regards to pancytopenia. She initially presented following 3 days of headaches, nausea, vomiting, and fatigue. CBC on admission noted WBC 6.4, hemoglobin 14.3, platelets 167. Ammonia on admission was elevated with concern for hepatic encephalopathy. GI was consulted and recommended lactulose 30 g 3 times daily. This resulted in progressive improvement in her mental status. Of note, TSH on admission was 93.5 with free T4 0.86. Blood cultures were noted to be positive for gram-positive cocci noted to be bacillus species. ID was consulted with thought that this likely represents skin contamination and does not require any systemic treatment. Currently, CBC revealed WBC 4.11 (ANC 2.11), hemoglobin 10.8 (MCV 97.9), platelets 98. She is much improved currently, and feels close to her baseline. She notes she did not take levothyroxine for 6 weeks prior to initial presentation and only restarted it recently prior to admission. She is currently off of Imuran for autoimmune hepatitis, but does have follow-up with her software developer consultant next month. She denies any dizziness, lightheadedness, chest pain, or palpitations. She denies any bruising or bleeding diathesis. Review of Systems 14 point review of systems was conducted with pertinent positives and negatives as noted per HPI. Past Medical History Past Medical History: Hypertension, Liver Disease Additional Past Medical History / Comment(s): autoimmune hepatitis History of Any Multi-Drug Resistant Organisms: None Reported Past Surgical History: Appendectomy, Cholecystectomy Past Anesthesia/Blood Transfusion Reactions: No Reported Reaction Smoking Status: Never smoker Past Alcohol Use History: None Reported Past Drug Use History: None Reported Medications and Allergies Home Medications Medication Instructions Recorded Confirmed Type Levothyroxine Sodium [Synthroid] 112 mcg PO DAILY 12/17/22 12/17/22 History Meclizine [Antivert] 25 mg PO Q8H PRN 12/17/22 12/17/22 History Olmesartan/Hydrochlorothiazide 1 tab PO DAILY 12/17/22 12/17/22 History [Benicar Hct 40-12.5 mg Tablet] Omeprazole 40 mg PO DAILY 12/17/22 12/17/22 History amLODIPine [Norvasc] 5 mg PO DAILY 12/17/22 12/17/22 History Lactulose [Cephulac] 30 gm PO TID #300 ml 12/20/22 Rx Allergies Allergy/AdvReac Type Severity Reaction Status Date / Time codeine AdvReac Vomiting Verified 12/17/22 19:39 morphine AdvReac Vomiting Verified 12/17/22 19:39 Physical Exam Vitals: Vital Signs Temp Pulse Pulse Resp BP Pulse Ox 12/20/22 16:21 71 18 97 12/20/22 15:50 73 12/20/22 15:41 70 12/20/22 15:00 96.6 F L 73 15 119/79 93 L 12/20/22 08:26 73 12/20/22 08:15 70 12/20/22 07:00 97.8 F 88 16 127/80 97 12/20/22 01:43 98.2 F 74 14 100/64 94 L 12/19/22 21:27 72 12/19/22 21:07 60 12/19/22 19:42 98.0 F 75 16 112/77 96 Intake and Output 12/20/22 12/20/22 12/20/22 06:59 14:59 22:59 Other: Voiding Method Toilet # Voids 2 - Constitutional General appearance: cooperative, no acute distress - EENT Eyes: EOMI - Respiratory Respiratory: bilateral: CTA - Cardiovascular Rhythm: regular - Gastrointestinal General gastrointestinal: no distended, normal bowel sounds, soft, no tenderness - Integumentary Integumentary: pale - Neurologic Neurologic: CNII-XII intact - Psychiatric Psychiatric: A&O x's 3 Results CBC & Chem 7: 12/20/22 05:49 12/20/22 14:45 Labs: Abnormal Lab Results - Last 24 Hours (Table) 12/20/22 12/20/22 12/20/22 Range/Units 05:49 05:49 05:49 WBC 4.11 L (4.50-10.00) X 10*3/uL RBC 3.40 L (4.10-5.20) X 10*6/uL Hgb 10.8 L (12.0-15.0) d/dL Hct 33.3 L (37.2-46.3) % MCV 97.9 H (80.0-97.0) FL RDW 16.1 H (11.5-14.5) % Plt Count 98 L (140-440) X 10*3/uL Potassium 3.1 L (3.5-5.5) mmol/L Carbon Dioxide 21.0 L (21.6-31.8) mmol/L BUN 8.2 L (9.0-27.0) mg/dL BUN/Creatinine Ratio 11.71 L (12.00-20.00) Ratio Calcium 8.1 L (8.7-10.3) mg/dL AST 47 H (13-35) U/L ALT 52 H (8-44) U/L Alkaline Phosphatase 146 H (41-126) U/L C-Reactive Protein 2.10 H (0.00-0.80) mg/dL Albumin 2.3 L (3.8-4.9) d/dL Globulin 5.2 H (1.6-3.3) d/dL Albumin/Globulin Ratio 0.44 L (1.60-3.17) Ratio Procalcitonin 0.11 H (0.02-0.09) ng/mL 12/20/22 Range/Units 14:45 WBC (4.50-10.00) X 10*3/uL RBC (4.10-5.20) X 10*6/uL Hgb (12.0-15.0) d/dL Hct (37.2-46.3) % MCV (80.0-97.0) FL RDW (11.5-14.5) % Plt Count (140-440) X 10*3/uL Potassium 3.0 L (3.5-5.5) mmol/L Carbon Dioxide (21.6-31.8) mmol/L BUN (9.0-27.0) mg/dL BUN/Creatinine Ratio (12.00-20.00) Ratio Calcium (8.7-10.3) mg/dL AST (13-35) U/L ALT (8-44) U/L Alkaline Phosphatase (41-126) U/L C-Reactive Protein (0.00-0.80) mg/dL Albumin (3.8-4.9) d/dL Globulin (1.6-3.3) d/dL Albumin/Globulin Ratio (1.60-3.17) Ratio Procalcitonin (0.02-0.09) ng/mL Microbiology - Last 24 Hours (Table) 12/17/22 18:30 Blood Culture Gram Stain - Final Blood Blood Culture - Final Bacillus species Not Anthracis 12/17/22 18:15 Blood Culture - Preliminary Blood Assessment and Plan (1) Bicytopenia Current Visit: Yes Status: Acute Code(s): D75.89 - OTHER SPECIFIED DISEASES OF BLOOD AND BLOOD-FORMING ORGANS SNOMED Code(s): 00842155 Plan: #Bicytopenia -Noted pancytopenia on CBC with macrocytic anemia and thrombocytopenia -While absolute WBC is low, neutrophils are normal -Her bicytopenia is likely multifactorial secondary to hypothyroidism being off of levothyroxine in addition to her underlying cirrhosis secondary to autoimmune hepatitis -Additional work-up to rule out other etiologies will be assessed -Ferritin, iron panel, vitamin B12, methylmalonic acid, and folate to be added to today's labs -Continue levothyroxine and should be titrated on an outpatient basis -Follow-up with her software developer consultant as recommended to see if she requires any additional treatment at this time We will continue to follow. Thank you for allowing us to participate in Ms. Mcqueen's care. Azam Abreu MD
[2022-12-21 00:05] LABS: % Iron Saturation 34.78 (12.00-45.00); Ferritin 71.1 ng/mL (10.0-291.0)
--- NOTE | 2022-12-21 01:31 | P.PN ---
Subjective Progress Note Date: 12/20/[address] Steve. Patient is a 72-year-old female with known history of autoimmune hepatitis, willian er cirrhosis, hypothyroidism and hypertension presents to ER with complaints of nausea vomiting and fatigue for the past 3 weeks. Patient stopped taking her Synthroid at least 6 weeks ago as she misplaced her pill bottle.. Patient also found to have an elevated ammonia level. 12/20/2022 Patient is currently lying in the bed. Awake alert and oriented x3. Nausea vomiting is much improved and patient is able to tolerate oral diet. No complaints of chest pain or shortness of breath. Blood cultures grew Bacillus species possibly contaminant. ID recommends no antibiotics at this time. Laboratory data showed WBC 4.1 hemoglobin 10.8 and platelets 98 Sodium 137 potassium 3.1 chloride 106 bicarb is 21 BUN 8.2 and creatinine 0.7, AST 47 ALT 52 and alk phos 146. CRP 2.1 and procalcitonin level is 0.11 Patient is being continued on lactulose 3 times daily. Potassium level continues to be low today even with replacement. Hydrochlorothiazide is on hold. Follow-up repeat CBC and CMP.. Objective - Vital Signs Vital signs: Vital Signs Temp 96.6 F L 12/20/22 15:00 Pulse 73 12/20/22 15:50 Resp 15 12/20/22 15:00 BP 119/79 12/20/22 15:00 Pulse Ox 93 L 12/20/22 15:00 FiO2 Intake & Output 12/19/22 12/20/22 12/20/22 18:59 06:59 18:59 Intake Total 480 Balance 480 Intake: Oral 480 Other: Voiding Method Toilet # Voids 1 2 - Exam PHYSICAL EXAMINATION: Patient is lying in the bed comfortably, no acute distress, awake alert and oriented.. HEENT: Normocephalic. Neck is supple. Pupils reactive. Nostrils clear. Oral cavity is moist. Neck reveals no JVD, carotid bruits, or thyromegaly. CHEST EXAMINATION: Trachea is central. Symmetrical expansion. Lung walker clear to auscultation and percussion. CARDIAC: Normal S1, S2 with no gallops. No murmurs ABDOMEN: Soft. Bowel sounds present. Nontender. No organomegaly. No abdominal bruits. Extremities: reveal no edema. No clubbing or cyanosis Neurologically awake, alert, oriented x3 with well-coordinated movements. No focal deficits noted Skin: No rash or skin lesions. Psychiatric: Coperative. Nonsuicidal, Musculoskeletal: No joint swelling or deformity. Normal range of motion. - Labs CBC & Chem 7: 12/20/22 05:49 12/20/22 14:45 Labs: Abnormal Lab Results - Last 24 Hours (Table) 12/20/22 12/20/22 12/20/22 Range/Units 05:49 05:49 05:49 WBC 4.11 L (4.50-10.00) X 10*3/uL RBC 3.40 L (4.10-5.20) X 10*6/uL Hgb 10.8 L (12.0-15.0) d/dL Hct 33.3 L (37.2-46.3) % MCV 97.9 H (80.0-97.0) FL RDW 16.1 H (11.5-14.5) % Plt Count 98 L (140-440) X 10*3/uL Potassium 3.1 L (3.5-5.5) mmol/L Carbon Dioxide 21.0 L (21.6-31.8) mmol/L BUN 8.2 L (9.0-27.0) mg/dL BUN/Creatinine Ratio 11.71 L (12.00-20.00) Ratio Calcium 8.1 L (8.7-10.3) mg/dL AST 47 H (13-35) U/L ALT 52 H (8-44) U/L Alkaline Phosphatase 146 H (41-126) U/L C-Reactive Protein 2.10 H (0.00-0.80) mg/dL Albumin 2.3 L (3.8-4.9) d/dL Globulin 5.2 H (1.6-3.3) d/dL Albumin/Globulin Ratio 0.44 L (1.60-3.17) Ratio Procalcitonin 0.11 H (0.02-0.09) ng/mL 12/20/22 Range/Units 14:45 WBC (4.50-10.00) X 10*3/uL RBC (4.10-5.20) X 10*6/uL Hgb (12.0-15.0) d/dL Hct (37.2-46.3) % MCV (80.0-97.0) FL RDW (11.5-14.5) % Plt Count (140-440) X 10*3/uL Potassium 3.0 L (3.5-5.5) mmol/L Carbon Dioxide (21.6-31.8) mmol/L BUN (9.0-27.0) mg/dL BUN/Creatinine Ratio (12.00-20.00) Ratio Calcium (8.7-10.3) mg/dL AST (13-35) U/L ALT (8-44) U/L Alkaline Phosphatase (41-126) U/L C-Reactive Protein (0.00-0.80) mg/dL Albumin (3.8-4.9) d/dL Globulin (1.6-3.3) d/dL Albumin/Globulin Ratio (1.60-3.17) Ratio Procalcitonin (0.02-0.09) ng/mL Microbiology - Last 24 Hours (Table) 12/17/22 18:30 Blood Culture Gram Stain - Final Blood Blood Culture - Final Bacillus species Not Anthracis 12/17/22 18:15 Blood Culture - Preliminary Blood Assessment and Plan Assessment: Acute hepatic encephalopathy Autoimmune hepatitis diagnosed 10 years ago 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 Patient ministered dose for the past 6 weeks. Bicytopenia Intractable nausea and vomiting and decreased oral intake on admission Hypertension DVT prophylaxis with SCDs. Plan: Patient will be continued on lactulose 30 g 3 times daily and titrate to 3-4 bowel meds per day. Continue to replace potassium and hydrochlorothiazide is on hold. Hematology was consulted due to bicytopenia. Continue with levothyroxine other home medications.. Patient was started on antibiotics in the form of clindamycin empirically. Continue to follow closely Anticipate discharge in the next 24 hours. Time with Patient: Greater than 30
[2022-12-21] MEDS: CLINDAMYCIN 300 MG in DEXTROSE 5% IN WATER 50 ML IVPB SCH ×4 (05:43→13:04)
[2022-12-21] MEDS: LEVOTHYROXINE 112 MCG TAB PO SCH (05:44)
[2022-12-21 07:37] VITALS: RESP 18; TEMP 98
[2022-12-21] MEDS: IPRATROPIUM-ALBUTEROL 3 ML NEB INHALATION SCH ×3 (07:38→15:35)
[2022-12-21] MEDS: BUDESONIDE 0.5 MG/2 ML NEBU INHALATION SCH (07:39)
[2022-12-21] MEDS: LACTULOSE 20 GM/30 ML CUP PO SCH ×2 (08:11→15:50)
[2022-12-21] MEDS: PANTOPRAZOLE 40 MG TABLET PO SCH (08:18)
[2022-12-21] MEDS: LOSARTAN 50 MG TAB PO SCH (08:18)
[2022-12-21] MEDS: RIFAXIMIN 550 MG TABLET PO SCH (08:18)
[2022-12-21] MEDS: amLODIPine 5 MG TAB PO SCH (08:18)
[2022-12-21] MEDS ORDERED: POTASSIUM CHLORIDE ER 20 MEQ TAB.ER PO SCH (09:00)
[2022-12-21 13:52] LABS: ALT 62 U/L (8-44); AST 56 U/L (13-35); Albumin 2.6 d/dL (3.8-4.9); Albumin/Globulin Ratio 0.44 Ratio (1.60-3.17); Alkaline Phosphatase 169 U/L (41-126); BUN/Creat Ratio 10.12 Ratio (12.00-20.00); Blood Urea Nitrogen 8.1 mg/dL (9.0-27.0); Calcium 8.6 mg/dL (8.7-10.3); Chloride 106 mmol/L (96-109); Globulin 5.9 d/dL (1.6-3.3); Glucose 92 mg/dL (70-110); Potassium 5.2 mmol/L (3.5-5.5); Sodium 138 mmol/L (135-145); Total Bilirubin 1.1 mg/dL (0.3-1.2); Total Protein 8.5 d/dL (6.2-8.2)
[2022-12-21 14:06] LABS: Basophils # (A) 0.05 X 10*3/uL (0.00-0.10); Basophils % (A) 0.9 %; Eosinophils # (A) 0.29 X 10*3/uL (0.04-0.35); HCT 38.4 % (37.2-46.3); HGB 12.5 d/dL (12.0-15.0); Lymphocytes # (A) 1.65 X 10*3/uL (0.90-5.00); Lymphocytes % (A) 28.6 %; MCHC 32.6 d/dL (32.0-37.0); MCV 101.3 FL (80.0-97.0); Mean Platelet Volume 12.9 FL (9.5-12.2); Monocytes # (A) 0.57 X 10*3/uL (0.20-1.00); Monocytes % (A) 9.9 %; NRBC Per 100 WBC 0 X 10*3/uL (0.00-0.01); Neutrophils # (A) 3.19 X 10*3/uL (1.80-7.70); Neutrophils % (A) 55.4 %; Platelet Count 125 X 10*3/uL (140-440); RBC 3.79 X 10*6/uL (4.10-5.20); RDW 16.6 % (11.5-14.5); WBC 5.76 X 10*3/uL (4.50-10.00)
[2022-12-21 14:58] VITALS: BP 95/62
--- NOTE | 2022-12-21 15:08 | P.PN ---
Subjective Progress Note Date: 12/21/22 Principal diagnosis: Bicytopenia -No acute events overnight -Vitamin B12, folic acid, and iron studies are all within normal limits -She denies any new signs or symptoms and is feeling well Objective - Vital Signs Vital signs: Vital Signs Temp 98 F 12/21/22 14:56 Pulse 77 12/21/22 14:56 Resp 18 12/21/22 14:56 BP 95/62 12/21/22 14:56 Pulse Ox 96 12/21/22 14:56 FiO2 Intake & Output 12/20/22 12/21/22 12/21/22 18:59 06:59 18:59 Intake Total 240 Balance 240 Intake: Oral 240 Other: Voiding Method Toilet # Voids 2 2 - Constitutional General appearance: Present: cooperative, no acute distress - EENT Eyes: Present: EOMI - Respiratory Respiratory: bilateral: CTA - Cardiovascular Rhythm: regular - Gastrointestinal General gastrointestinal: Present: soft. Absent: distended - Neurologic Neurologic: Present: CNII-XII intact. Absent: focal deficits - Psychiatric Psychiatric: Present: A&O x's 3 - Labs CBC & Chem 7: 12/21/22 07:33 12/21/22 07:33 Labs: Abnormal Lab Results - Last 24 Hours (Table) 12/20/22 12/21/22 12/21/22 Range/Units 14:45 07:33 07:33 RBC 3.79 L (4.10-5.20) X 10*6/uL MCV 101.3 H (80.0-97.0) FL MCH 33.0 H (27.0-32.0) pg RDW 16.6 H (11.5-14.5) % Plt Count 125 L (140-440) X 10*3/uL MPV 12.9 H (9.5-12.2) FL Potassium 3.0 L (3.5-5.1) mmol/L BUN 8.1 L (9.0-27.0) mg/dL BUN/Creatinine Ratio 10.12 L (12.00-20.00) Ratio Calcium 8.6 L (8.7-10.3) mg/dL Transferrin 181.0 L (204.0-354.0) mg/dL AST 56 H (13-35) U/L ALT 62 H (8-44) U/L Alkaline Phosphatase 169 H (41-126) U/L Total Protein 8.5 H (6.2-8.2) d/dL Albumin 2.6 L (3.8-4.9) d/dL Globulin 5.9 H (1.6-3.3) d/dL Albumin/Globulin Ratio 0.44 L (1.60-3.17) Ratio Microbiology - Last 24 Hours (Table) 12/17/22 18:15 Blood Culture - Preliminary Blood 12/19/22 12:29 Blood Culture - Preliminary Blood 12/17/22 18:30 Blood Culture Gram Stain - Final Blood Blood Culture - Final Bacillus species Not Anthracis Assessment and Plan (1) Bicytopenia Current Visit: Yes Status: Acute Code(s): D75.89 - OTHER SPECIFIED DISEASES OF BLOOD AND BLOOD-FORMING ORGANS SNOMED Code(s): 10785214 Plan: #Bicytopenia -Noted pancytopenia on CBC with macrocytic anemia and thrombocytopenia -While absolute WBC is low, neutrophils are normal -Her bicytopenia is likely multifactorial secondary to hypothyroidism being off of levothyroxine in addition to her underlying cirrhosis secondary to autoimmune hepatitis -Ferritin, iron panel, vitamin B12, and folic acid obtained yesterday were all within normal limits -CBC on today's encounter is improved with hemoglobin 12.5, WBC 5.76, platelets 125 -Continue levothyroxine and should be titrated on an outpatient basis -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 Mcqueen's care. We remain available if there are are any additional questions or concerns that arise. Azam Abreu MD
[2022-12-21 15:45] VITALS: PULSE 73
== END 2022-12-21 17:25 | disposition home or self-care (01) ==
LOC: EC 12:12 → 6NMEDSUR 18:22
PROVIDERS: ADMIT Family Medicine; ATTEND Family Medicine
DX: E72.20 Disorder of urea cycle metabolism, unspecified (principal); G43.909 Migraine, unspecified, not intractable, without status migrainosus; D75.89 Other specified diseases of blood and blood-forming organs; K75.4 Autoimmune hepatitis; I10 Essential (primary) hypertension; Z90.49 Acquired absence of other specified parts of digestive tract; K74.69 Other cirrhosis of liver; E03.9 Hypothyroidism, unspecified; Z79.890 Hormone replacement therapy; Z79.899 Other long term (current) drug therapy; Z88.5 Allergy status to narcotic agent
CPT/HCPCS: 96365; 96366 ×2; 96361; 96375; 99285; 36415; 94640 ×4; 93005; 83921; 84439; 80053 ×4; 84443; 82607; 82728; 82140 ×4; 82150; 82746; 83540; 83550; 83690; 84132; 84484; 85025 ×4; 85610; 85730; 86140; 86308; 81003; 87040 ×2; 84145; 76705; 70450; 71250; G0378 ×5; J2405; J1885

== ENCOUNTER → 2023-02-26 | Outpatient (CLI) | payer MEDICARE ==
--- NOTE | 2023-02-26 22:00 | US ---
EXAMINATION TYPE: US pelvis complete transvag DATE OF EXAM: 02/26/2023 COMPARISON: NONE CLINICAL INDICATION: Female, 72 years old with history of N93.9 ABNORMAL UTERINE BLEEDING; Patient bach d light vaginal bleeding that lasted x 5 days which stopped on Thursday. TECHNIQUE: Transvaginal (TV) and Transabdominal (TA) . Transabdominal sonographic images of the pel vis were acquired. Transvaginal sonographic images were medically necessary to better assess the fol lowing anatomy: Endometrium and ovaries. Date of LMP: In patient's 50s. EXAM MEASUREMENTS: Uterus: 8.0 x 4.7 x 3.9 cm Endometrial Stripe: 1.0 cm Right Ovary: Not seen Left Ovary: Not seen 1. Uterus: Anteverted. Complex area seen mid uterus: 0.8 x 0.8 x 0.7 cm Multiple complex subcentimeter areas seen in cervix. *Prominent vascularity seen peripheral uterus. 2. Endometrium: Thickened 3. Right Ovary: Not seen 4. Left Ovary: Not seen 5. Bilateral Adnexa: Free fluid seen within bilateral adnexa* Prominent blood vessels seen within bilateral adnexa. 6. Posterior cul-de-sac: Appears wnl IMPRESSION: 1. Thickened endometrial stripe up to 1 cm and mild pelvic ascites/free fluid. Further RAILROAD TRACK MECHANIC and fem candi pelvic MRI evaluation recommended. Neoplastic etiology is not excluded at this time. 2. Unable to discretely visualize either ovary. Probably due to small postmenopausal size.
== END | disposition home or self-care (01) ==
LOC: RADUSWWP 08:55
PROVIDERS: ATTEND Family Medicine
DX: N93.9 Abnormal uterine and vaginal bleeding, unspecified (principal); R93.89 Abnormal findings on diagnostic imaging of other specified body structures; R18.8 Other ascites
CPT/HCPCS: 76830; 76856